=== PATIENT | male | born 1960 | race Caucasian/White ===

== ENCOUNTER 2018-10-31 09:50 | Emergency (ER) | payer OTHER, SELFPAY ==
[2018-10-31 09:57] VITALS: BP 157/103; PULSE 84; RESP 19; TEMP 36.8; O2SAT 98; BMI 29.7
--- NOTE | 2018-10-31 10:01 | ED.EXTPRO ---
HPI - Extremity Problem General Chief complaint: Extremity Injury, Upper Stated complaint: L arm injury Time Seen by Provider: 10/31/18 10:00 Source: patient Mode of arrival: ambulatory Limitations: no limitations History of Present Illness HPI Narrative: 58-year-old male here for evaluation of left arm injury. Patient states that yesterday he was pulling a rather heavy object. He did state that his arm was slightly bent. He states that he felt a ?pop? he also heard a pop and then has had pain since then. He states he does have pain when he flexes his elbow. He also has quite a bit of discomfort trying to supinate his arm. No injuries prior to this event. Related Data Allergies Allergy/AdvReac Type Severity Reaction Status Date / Time No Known Drug Allergies Allergy Verified 10/31/18 09:57 Review of Systems Constitutional Denies fever(s) Cardiovascular Denies chest pain and Denies dyspnea Respiratory Denies dyspnea Musculoskeletal Reports arthralgias (Left elbow) and Denies tingling Integumentary/Breasts Denies rash Neurologic Denies tingling Hematologic/Lymphatic Denies easy bleeding and Denies easy bruising [facility] Medical History Ankle pain (Chronic ~1996) Barretts syndrome (Chronic ~2016) Deep vein thrombosis (Chronic ~2010) Low testosterone (Chronic ~2015) Surgical History (Updated 01/17/18 @ 20:59 by Brissa Mejias) Anesthesia (Resolved) History of hernia surgery (Resolved ~1992) History of knee surgery (Resolved ~2010) Family History (Updated 01/17/18 @ 21:00 by Brissa Mejias) Father Cancer Sister No problems noted. Social History Smoking Status: Never smoker Family History (Updated 01/17/18 @ 21:00 by Brissa Mejias) Father Cancer Sister No problems noted. Social History Smoking Status: Never smoker Exam Initial Vital Signs Initial Vital Signs: Vital Signs Temperature 98.2 F 10/31/18 09:57 Pulse Rate 84 10/31/18 09:57 Respiratory Rate 19 10/31/18 09:57 Blood Pressure 157/103 H 10/31/18 09:57 Pulse Oximetry 98 10/31/18 09:57 Const General: cooperative, well developed, well groomed and No acute distress Orientation: alert and awake HENNC Head: normal to inspection and normocephalic Cardio Pulses: radial pulses present on the left Skin Lesions: no lesions Rashes: no rashes Neuro General: alert and awake Cognition: normal cognition Speech: speech normal Sensory Exam: no sensory deficits noted Extrem Other: Left hand left elbow left forearm unremarkable. He is tender to palpation over the left brachial radialis. He is able to flex and extend however does have quite a bit of discomfort with flexion. He also has quite a bit of pain with supination. The biceps tendon does appear to be intact. He does have quite a bit of discomfort flexing his biceps. Psych Appearance: grossly normal and well kempt Course Orders Ordered: ED Orders 10/31/18 10:30 XR elbow LT min 3V Stat Vital Signs - 8 hr 10/31/18 09:57 10/31/18 10:15 Temperature 98.2 F Pulse Rate 84 Pulse Rate [Left Radial] 70 Respiratory Rate 19 Blood Pressure 157/103 H Pulse Oximetry 98 MDM - Extremity (Nontraumatic) Imaging Data X-ray elbow: Radiologist's impression: [address] [address] XRay Report Signed Patient: Felix Price#: [id number] : 1Acct:[id number] Age/Sex: 58 / MDate of Service: 10/31/18 Loc: ED Accession Number: [id number] Procedure: XR elbow LT min 3V Ordering Provider: Ryley Mendes D.O. PROCEDURE: XR ELBOW LT MIN 3V INDICATIONS: Pain after injury yesterday TECHNIQUE: 3 views of the elbow were acquired. COMPARISON: None. FINDINGS: Bones: No fractures or dislocations. No suspicious bony lesions. Periarticular osteophyte formation at the elbow joint. Soft tissues: No elbow joint effusion. No suspicious soft tissue calcifications. IMPRESSION: Osteoarthritis. No acute fracture. No osseous lesion. If symptoms or clinical suspicion for pathology persists, repeat plain films, or advanced imaging (CT, bone scan, or MRI) may be helpful for further assessment. Dictated by: Ilana Esteban M.D. on 10/31/2018 at 9:43 Approved by: Ilana Esteban M.D. on 10/31/2018 at 9:43 MDM Narrative Medical decision making narrative: Patient is neurovascularly intact. He does have tenderness to palpation over the brachia radialis. Secondary to his history and physical exam I do have some concern about a potential tear the brachioradialis and or the biceps. He does not have a ?pop eye sign ?on the right. Patient was given the number for follow-up with Orthopedics. He states that he does not will need a sling. He states he will use Tylenol and ibuprofen at home. Informed him he should follow up with Orthopedics to evaluate whether not he needs an MRI. He was given return precautions. He expressed understanding and agreement with plan. Discharge Plan Departure Patient Disposition: Home Clinical Impression: Injury of elbow, left Qualifiers: Encounter type: initial encounter Qualified Code(s): S59.902A - Unspecified injury of left elbow, initial encounter Discharge Date/Time: 10/31/18 11:10 Interventions: ED Discharge Assessment Last Done: 10/31/18 11:09 Instructions: DI for Elbow Pain Activity Restrictions/Additional Instructions: Recommend use Tylenol for any discomfort. Contact the [facility]opedic group at [phone] on Friday for a follow-up. Return to the emergency department for any new or worsening symptoms
[2018-10-31 10:15] VITALS: PULSE 70
--- NOTE | 2018-10-31 10:30 | DI.RAD.S_ITS ---
PROCEDURE: XR ELBOW LT MIN 3V INDICATIONS: Pain after injury yesterday TECHNIQUE: 3 views of the elbow were acquired. COMPARISON: None. FINDINGS: Bones: No fractures or dislocations. No suspicious bony lesions. Periarticular osteophyte formation at the elbow joint. Soft tissues: No elbow joint effusion. No suspicious soft tissue calcifications. IMPRESSION: Osteoarthritis. No acute fracture. No osseous lesion. If symptoms or clinical suspicion for pathology persists, repeat plain films, or advanced imaging (CT, bone scan, or MRI) may be helpful for further assessment. Dictated by: Ilana Esteban M.D. on 10/31/2018 at 9:43 Approved by: Ilana Esteban M.D. on 10/31/2018 at 9:43
== END 2018-10-31 11:10 | disposition home or self-care (01) ==
PROVIDERS: Emergency Provider Emergency Medicine
DX: S59.902A Unspecified injury of left elbow, initial encounter (principal)
CPT/HCPCS: 73080; 99282; 99283

== ENCOUNTER 2018-12-22 07:30 | Outpatient (RCR) | payer OTHER, SELFPAY ==
--- NOTE | 2018-11-10 10:22 | OT.OP.EVAL ---
Visit Care Team Role Provider Type Karson Crawford MD Attending Provider Non-Staff Primary Care Provider Specialty: Family Practice Address: [address] [place] [address], [id number] Email: Occupational Therapy Initial Evaluation OT Outpatient Adult Evaluation Start: 11/09/18 13:17 Freq: Status: Active Protocol: Document 11/06/18 13:17 AMS (Rec: 11/09/18 13:32 AMS [email or web address]) General Information Visit Start Time 07:30 Visit Stop Time 08:00 Total Visit Minutes 30 Plan of Care Dates 11/06/18-01/29/19 Insurance Information ; 1 eval and 12 visits Treatment Setting Outpatient Care Note Type Initial Evaluation Referring Physician Karson Crawford MD Reason for Referral Strain of muscle, fascia and tendon of long head of biceps, left arm Identification Confirmed Yes: Photo ID Patient Goals Return to PLOF Medical History Health History form completed by patient and placed in paper chart. Significant for arthritis; back pain; blood clots; hernia; stomach surgery . Medical records were reviewed; patient reportedly heard a pop in his left arm when attempting to slide the bucket of an excavator at work . Per MD notes, patient 'has full range of motion, no loss of function and only pain' [ symptoms] 'most likely represent a partial tear of brachial radialis'. x-ray was completed on 10/31/18 . Impression as follows: No acute fracture. No osseous lesion. 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 Range of Motion Left Active Elbow/Forearm ROM WFL No Forearm ROM Testing Position Sitting Elbow Flex AROM (degrees) 0-133 Elbow Ext AROM (degrees) Full extension Forearm Pron AROM (degrees) 0-75 (more painful) Forearm Sup AROM (degrees) 0-75 Right Active Elbow/Forearm ROM WFL Yes Forearm ROM Testing Position Sitting Elbow Flex AROM (degrees) 0-143 Elbow Ext AROM (degrees) FULL ROM (full extension) Forearm Pron AROM (degrees) 0-90 Forearm Sup AROM (degrees) 0-80 Goals Short Term Goals 1. 0-80 degrees pain-free active left forearm supination . 2. 0-80 degrees pain-free active left forearm pronation. Shelter Goals 1. Patient will present with increased ability to complete functional tasks d/t decreased pain/discomfort, as evidenced by indication of 2 or less out of 10 on the Pain Assessment Grid relative to the left upper extremity. 2. Patient will present with increased ability to complete functional tasks, as evidenced by obtaining a score of less than 20.0 on the QuickDASH UE Outcome Measure. 3. Patient will present with increased ability to complete work tasks, as evidenced by obtaining a score of less than 20.0 on the QuickDASH UE Outcome Work Measure. Assessment/Plan Patient Response Good Rehabilitation Potential Good Impairments Identified Coordination/Dexterity Functional Activities Motor Function Pain Weakness Range of Motion Recreational Activities Meaningful Activities Stiffness Swelling Soft Tissue Mobility Motor Planning Eye-Hand Coordination Treatment Assessment Patient is a 58 year-old right hand dominant male referred to outpatient OT by PCP for muscle tear. Muscle tear was result of exertional injury occurring against elbow flexion of heavy object with left arm. Per MD notes, patient 'has full range of motion, no loss of function and only pain' [symptoms] ' most likely represent a partial tear of brachial radialis'. x-ray was completed on 10/31/18. Impression as follows: No acute fracture. No osseous lesion. 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 Outpatient OT is recommended to address areas of impairment in order to maximize patient' s success w/ active participation in meaningful activities in a variety of environments. Comment 12 weeks Treatment Frequency Once a Week Therapeutic Contents Active Range of Motion Adaptive Equipment Education Client Education Functional Activities Home Exercise Program Joint Protection Manual Therapy Education Neurodevelopment Treatment Neuromuscular Re-Education Self-Care Splinting Stretching/Flexibility Activities Therapeutic Activities Therapeutic Exercises Modalities Sensory Re-education Modalities As Needed As Prescribed Types of Modalities Contrast Bath E-Stim Functional Stimulation (FES) Ice Massage Bandaging T.E.N. Stimulation TENS Placement/Application Ultrasound Patient Instruction Home Exercise Program Plan of Care Questions/Concerns Patient Recommendations Continue with Current Program Advance per Rehabilitation Protocol
--- NOTE | 2018-11-11 10:29 | OT.OP.TRT ---
Visit Care Team Role Provider Type Karson Crawford MD Attending Provider Non-Staff Primary Care Provider Specialty: Family Practice Address: [address] [place] [address], [id number] Email: Occupational Therapy Treatment Note OT Outpatient Treatment Note - Adult Start: 11/09/18 13:17 Freq: Status: Active Protocol: Document 11/11/18 10:13 AMS (Rec: 11/11/18 10:29 AMS [email or web address]) OT Outpatient Adult Treatment Note Session Time Visit Start Time 07:30 Visit Stop Time 08:10 Total Visit Minutes 40 Visit Information Visit Number 05/30 Plan of Care Dates 11/06/18-01/29/19 Setting Treatment Setting Outpatient Care Visit Type Note Type Treatment Note General Information General Information Patient is a 58 year-old right hand dominant male referred to outpatient OT by PCP for muscle tear. Muscle tear was result of exertional injury occurring against elbow flexion of heavy object with left arm. Per MD notes, patient 'has full range of motion, no loss of function and only pain' [symptoms] ' most likely represent a partial tear of brachial radialis'. x-ray was completed on 10/31/18. Impression as follows: No acute fracture. No osseous lesion. - Subjective Identification Type Name Identification Reconciled With Medical Record Observations The contrast really seems to be helping per Josesito ( in re: contrast hot and cold). I told the doctor that I would not wear a splint. He said it might help with my pain per Josesito. I think it is better than last week. I can now do this [ pronate and supinate w/ elbow extended]. I couldn't do that . Chief Complaint(s) Restricts Patient/Caregiver Compliance with Home Good Exercise Program - Objective Short Term Goals 1. 0-80 degrees pain-free active left forearm supination . 2. 0-80 degrees pain-free active left forearm pronation. Residential Goals 1. Patient will present with increased ability to complete functional tasks d/t decreased pain/discomfort, as evidenced by indication of 2 or less out of 10 on the Pain Assessment Grid relative to the left upper extremity. 2. Patient will present with increased ability to complete functional tasks, as evidenced by obtaining a score of less than 20.0 on the QuickDASH UE Outcome Measure. 3. Patient will present with increased ability to complete work tasks, as evidenced by obtaining a score of less than 20.0 on the QuickDASH UE Outcome Work Measure. - Treatment 3 Descriptor HEP. No changes to HEP on this treatment date. Recommended continued utilization of contrast baths, AROM. Avoid pain with ROM exercises; no lifting/carrying items with UE . 2 Descriptor Manual Mobilization. Soft tissue. Medial/lateral elbow focus. 1 Descriptor Ultrasound. 20% duty cycle. 2. 0 w/cm2. Applied to volar elbow to address swelling. Skin intact pre- and post- treatment. - Assessment Patient Response to Treatment Fair Rehab Potential Good Impairments Identified Flexibility Functional Activities Motor Function Pain Weakness Range of Motion Recreational Activities Meaningful Activities Stiffness Swelling Soft Tissue Mobility Motor Planning Eye-Hand Coordination Assessment of Improvement Decreased ecchymosis compared to previous treatment session - still present distally volar surface of wrist; improving pain-free active forearm supination and pronation w/ elbow in extension. Pain still present however, particularly w/ supinaton and pronation w/ elbow in 45 degree flexion. No c/o w/ supination/pronation w/ 90 degree flexion of elbow . Denied change in AROM at shoulder and wrist/digits compared to PLOF. h/o declining splint as recommended by MD to assist w/ management of pain/discomfort . Recommend that therapist advances treatment and HEP as able given presenting symptoms at time of next treatment session. Home Exercise Program Please refer to treatment section of note for specific details. Reviewed with Patient/Caregiver Progress Being Made - Plan Therapy Recommendations Continue with Current Program Advance per Rehabilitation Protocol
--- NOTE | 2018-11-20 11:48 | OT.OP.TRT ---
Visit Care Team Role Provider Type Karson Crawford MD Attending Provider Non-Staff Primary Care Provider Specialty: Family Practice Address: [address] [place] [address], [id number] Email: Occupational Therapy Treatment Note OT Outpatient Treatment Note - Adult Start: 11/09/18 13:17 Freq: Status: Active Protocol: Document 11/20/18 08:27 AMS (Rec: 11/20/18 08:33 AMS [email or web address]) OT Outpatient Adult Treatment Note Session Time Visit Start Time 07:30 Visit Stop Time 08:10 Total Visit Minutes 40 Visit Information Visit Number 06/30 Plan of Care Dates 11/06/18-01/29/19 Insurance Information 1 eval; 12 visits Setting Treatment Setting Outpatient Care Visit Type Note Type Treatment Note General Information General Information Patient is a 58 year-old right hand dominant male referred to outpatient OT by PCP for muscle tear. Muscle tear was result of exertional injury occurring against elbow flexion of heavy object with left arm. Per MD notes, patient 'has full range of motion, no loss of function and only pain' [symptoms] ' most likely represent a partial tear of brachial radialis'. x-ray was completed on 10/31/18. Impression as follows: No acute fracture. No osseous lesion. - Subjective Identification Type Name Identification Reconciled With Medical Record Observations It seems to be getting better . I couldn't even feel it when I came in per Josesito. 11/11/18= I told the doctor that I would not wear a splint . He said it might help with my pain per Josesito. I think it is better than last week. I can now do this [ pronate and supinate w/ elbow extended]. I couldn't do that . Chief Complaint(s) Restricts Patient/Caregiver Compliance with Home Good Exercise Program - Objective Objective Measurements Denied pain/discomfort w/ forearm supination/pronation w / elbow in 90 degrees and 135 degrees. Initiated light resistance exercises; (+) fatigue reported. Short Term Goals 1. 0-80 degrees pain-free active left forearm supination . 2. 0-80 degrees pain-free active left forearm pronation. Detention Goals 1. Patient will present with increased ability to complete functional tasks d/t decreased pain/discomfort, as evidenced by indication of 2 or less out of 10 on the Pain Assessment Grid relative to the left upper extremity. 2. Patient will present with increased ability to complete functional tasks, as evidenced by obtaining a score of less than 20.0 on the QuickDASH UE Outcome Measure. 3. Patient will present with increased ability to complete work tasks, as evidenced by obtaining a score of less than 20.0 on the QuickDASH UE Outcome Work Measure. - Treatment 3 Descriptor HEP. Recommended light resistance exercises 1 to 2 pounds of weight; avoid pain w / execution of exercises. 3 x 10 recommended 2 to 3 times per day w/ increase in repetitions as tolerated versus increasing resistance. Recommended continued focus on pain-free ROM and swelling management as well as carrying items > 1-2 pounds in weight. Josesito denied questions. 2 Descriptor Manual Mobilization. Soft tissue. Medial elbow focus. 1 Descriptor Ultrasound. 20% duty cycle. 2. 0 w/cm2. x 10 minutes. Applied to volar elbow to address swelling/inflammation. Skin intact pre- and post-treatment . Exercises 1 Descriptor Light resistance exercises Forearm pronation/supination Wrist extension/flexion Side Left Sets 3 Repetitions 10 Resistance 2# DB Complexity Upgraded - Assessment Patient Response to Treatment Fair Rehab Potential Good Impairments Identified Flexibility Functional Activities Motor Function Pain Weakness Range of Motion Recreational Activities Meaningful Activities Stiffness Swelling Soft Tissue Mobility Motor Planning Eye-Hand Coordination Assessment of Improvement (-) ecchymosis. No c/o w/ supination/pronation w/ 90 degrees flexion of elbow and/ or 45 degrees flexion of elbow . Upgraded therapeutic exercises to light resistance; (+) fatigue w/ execution of exercises away from body. Upgraded HEP on this treatment date. Recommend that therapist advances treatment and HEP as able given presenting symptoms at time of next treatment session. Home Exercise Program Please refer to treatment section of note for specific details. Reviewed with Patient/Caregiver Progress Being Made - Plan Therapy Recommendations Continue with Current Program Advance per Rehabilitation Protocol
--- NOTE | 2018-11-27 08:22 | OT.OP.TRT ---
Visit Care Team Role Provider Type Karson Crawford MD Attending Provider Non-Staff Primary Care Provider Specialty: Family Practice Address: [address] [place] [address], [phone] Email: Occupational Therapy Treatment Note OT Outpatient Treatment Note - Adult Start: 11/09/18 13:17 Freq: Status: Active Protocol: Document 11/27/18 08:16 AMS (Rec: 11/27/18 08:22 AMS [email or web address]) OT Outpatient Adult Treatment Note Session Time Visit Start Time 07:30 Visit Stop Time 08:10 Total Visit Minutes 40 Visit Information Visit Number 07/28 Plan of Care Dates 11/06/18-01/29/19 Insurance Information 1 eval; 12 visits Setting Treatment Setting Outpatient Care Visit Type Note Type Treatment Note General Information General Information Patient is a 58 year-old right hand dominant male referred to outpatient OT by PCP for muscle tear. Muscle tear was result of exertional injury occurring against elbow flexion of heavy object with left arm. Per MD notes, patient 'has full range of motion, no loss of function and only pain' [symptoms] ' most likely represent a partial tear of brachial radialis'. x-ray was completed on 10/31/18. Impression as follows: No acute fracture. No osseous lesion. - Subjective Identification Type Name Identification Reconciled With Medical Record Observations I have been taking it easy. I have been using a soda can or a water bottle in the truck doing the exercises per Josesito. 11/11/18= I told the doctor that I would not wear a splint . He said it might help with my pain per Hamer. I think it is better than last week. I can now do this [ pronate and supinate w/ elbow extended]. I couldn't do that . Chief Complaint(s) Restricts Patient/Caregiver Compliance with Home Good Exercise Program - Objective Objective Measurements Denied pain/discomfort w/ forearm supination/pronation w / elbow in 90 degrees and 135 degrees. Short Term Goals 1. 0-80 degrees pain-free active left forearm supination . 2. 0-80 degrees pain-free active left forearm pronation. Retirement Goals 1. Patient will present with increased ability to complete functional tasks d/t decreased pain/discomfort, as evidenced by indication of 2 or less out of 10 on the Pain Assessment Grid relative to the left upper extremity. 2. Patient will present with increased ability to complete functional tasks, as evidenced by obtaining a score of less than 20.0 on the QuickDASH UE Outcome Measure. 3. Patient will present with increased ability to complete work tasks, as evidenced by obtaining a score of less than 20.0 on the QuickDASH UE Outcome Work Measure. - Treatment 3 Descriptor HEP. Recommended light resistance exercises 1 to 2 pounds of weight; avoid pain w / execution of exercises. 3 x 10 recommended 2 to 3 times per day w/ increase in repetitions as tolerated versus increasing resistance. Advanced to hold of light weight for 5-8 seconds for strengthening/stabilizing purposes, as well as for flexibility. Josesito denied questions. Complexity Upgraded 2 Descriptor Manual Mobilization. Soft tissue. Medial elbow focus. 1 Descriptor Ultrasound. 20% duty cycle. 2. 0 w/cm2. x 10 minutes. Applied to volar elbow to address swelling/inflammation. Skin intact pre- and post-treatment . Exercises 1 Descriptor Light resistance exercises Forearm pronation/supination Wrist extension/flexion (addition of hold for 5 to 8 sec) Side Left Sets 1 Repetitions 10 Resistance 2# DB Complexity Upgraded - Assessment Patient Response to Treatment Fair Rehab Potential Good Impairments Identified Flexibility Functional Activities Motor Function Pain Weakness Range of Motion Recreational Activities Meaningful Activities Stiffness Swelling Soft Tissue Mobility Motor Planning Eye-Hand Coordination Assessment of Improvement (-) ecchymosis. No c/o w/ supination/pronation w/ 90 degrees flexion of elbow and/ or 45 degrees flexion of elbow . Upgraded therapeutic exercises to light resistance with hold given no report of fatigue/muscle weakness w/ previously recommended exercises. (+) report of increased effort required w/ hold. (+) tenderness medial/ volar surface of elbow. Recommend that therapist advances treatment and HEP as able given presenting symptoms at time of next treatment session. Home Exercise Program Please refer to treatment section of note for specific details. Reviewed with Patient/Caregiver Progress Being Made - Plan Therapy Recommendations Continue with Current Program Advance per Rehabilitation Protocol
--- NOTE | 2018-12-01 09:47 | OT.OP.TRT ---
Visit Care Team Role Provider Type Karson Crawford MD Attending Provider Non-Staff Primary Care Provider Specialty: Family Practice Address: [address] [place] [address], [id number] Email: Occupational Therapy Treatment Note OT Outpatient Treatment Note - Adult Start: 11/09/18 13:17 Freq: Status: Active Protocol: Document 12/01/18 09:41 AMS (Rec: 12/01/18 09:47 AMS [email or web address]) OT Outpatient Adult Treatment Note Session Time Visit Start Time 07:30 Visit Stop Time 08:10 Total Visit Minutes 40 Visit Information Visit Number 08/28 Plan of Care Dates 11/06/18-01/29/19 Insurance Information 1 eval; 12 visits Setting Treatment Setting Outpatient Care Visit Type Note Type Treatment Note General Information General Information Patient is a 58 year-old right hand dominant male referred to outpatient OT by PCP for muscle tear. Muscle tear was result of exertional injury occurring against elbow flexion of heavy object with left arm. Per MD notes, patient 'has full range of motion, no loss of function and only pain' [symptoms] ' most likely represent a partial tear of brachial radialis'. x-ray was completed on 10/31/18. Impression as follows: No acute fracture. No osseous lesion. - Subjective Identification Type Name Identification Reconciled With Medical Record Observations I was pretty sore after last treatment session per Josesito. 11/11/18= I told the doctor that I would not wear a splint . He said it might help with my pain per Josesito. I think it is better than last week. I can now do this [ pronate and supinate w/ elbow extended]. I couldn't do that . Chief Complaint(s) Restricts Patient/Caregiver Compliance with Home Good Exercise Program - Objective Objective Measurements Denied pain/discomfort w/ forearm supination/pronation w / elbow in 90 degrees and 135 degrees. Short Term Goals 1. 0-80 degrees pain-free active left forearm supination . 2. 0-80 degrees pain-free active left forearm pronation. Creative Art Director Goals 1. Patient will present with increased ability to complete functional tasks d/t decreased pain/discomfort, as evidenced by indication of 2 or less out of 10 on the Pain Assessment Grid relative to the left upper extremity. 2. Patient will present with increased ability to complete functional tasks, as evidenced by obtaining a score of less than 20.0 on the QuickDASH UE Outcome Measure. 3. Patient will present with increased ability to complete work tasks, as evidenced by obtaining a score of less than 20.0 on the QuickDASH UE Outcome Work Measure. - Treatment 3 Descriptor HEP. No changes to HEP given presentation. Josesito denied questions. Complexity No Change 2 Descriptor Manual Mobilization. Soft tissue. 1 Descriptor Ultrasound. 20% duty cycle. 2. 0 w/cm2 x 15 minutes. Applied to volar elbow to address swelling/inflammation. Skin intact pre- and post-treatment . Exercises 1 Descriptor Light resistance exercises Forearm pronation/supination Wrist extension/flexion (addition of hold for 5 to 8 sec) Side Left Sets 1 Repetitions 10 Resistance 2# DB Complexity Upgraded - Assessment Patient Response to Treatment Fair Rehab Potential Good Impairments Identified Flexibility Functional Activities Motor Function Pain Weakness Range of Motion Recreational Activities Meaningful Activities Stiffness Swelling Soft Tissue Mobility Motor Planning Eye-Hand Coordination Assessment of Improvement (-) ecchymosis. Increased pain /discomfort w/ active ROM s/p previous treatment session. (+ ) increased stiffness of volar surface of L forearm; manual focus on addressing muscular stiffness. Decreased stiffness and pain/discomfort reported; thus, positive response to treatment. Recommend that therapist advances treatment and HEP as able given presenting symptoms at time of next treatment session. Home Exercise Program Please refer to treatment section of note for specific details. Reviewed with Patient/Caregiver Progress Being Made - Plan Therapy Recommendations Continue with Current Program Advance per Rehabilitation Protocol
--- NOTE | 2018-12-11 14:13 | OT.OP.TRT ---
Visit Care Team Role Provider Type Karson Crawford MD Attending Provider Non-Staff Primary Care Provider Specialty: Family Practice Address: [address] [place] [address], [phone] Email: Occupational Therapy Treatment Note OT Outpatient Treatment Note - Adult Start: 11/09/18 13:17 Freq: Status: Active Protocol: Document 12/11/18 14:05 AMS (Rec: 12/11/18 14:13 AMS [email or web address]) OT Outpatient Adult Treatment Note Session Time Visit Start Time 07:30 Visit Stop Time 08:10 Total Visit Minutes 40 Visit Information Visit Number 10/28 Plan of Care Dates 11/06/18-01/29/19 Insurance Information 1 eval; 12 visits Setting Treatment Setting Outpatient Care Visit Type Note Type Treatment Note General Information General Information Patient is a 58 year-old right hand dominant male referred to outpatient OT by PCP for muscle tear. Muscle tear was result of exertional injury occurring against elbow flexion of heavy object with left arm. Per MD notes, patient 'has full range of motion, no loss of function and only pain' [symptoms] ' most likely represent a partial tear of brachial radialis'. x-ray was completed on 10/31/18. Impression as follows: No acute fracture. No osseous lesion. - Subjective Identification Type Name Identification Reconciled With Medical Record Observations I couldn't have done that a couple of weeks ago per Josesito in response to dynamic combined UE movements. 11/11/18= I told the doctor that I would not wear a splint . He said it might help with my pain per Josesito. I think it is better than last week. I can now do this [ pronate and supinate w/ elbow extended]. I couldn't do that . Chief Complaint(s) Restricts Patient/Caregiver Compliance with Home Good Exercise Program - Objective Objective Measurements Denied pain/discomfort w/ forearm supination/pronation w / elbow in 90 degrees and 135 degrees. Short Term Goals 1. 0-80 degrees pain-free active left forearm supination . 2. 0-80 degrees pain-free active left forearm pronation. Care Home Goals 1. Patient will present with increased ability to complete functional tasks d/t decreased pain/discomfort, as evidenced by indication of 2 or less out of 10 on the Pain Assessment Grid relative to the left upper extremity. 2. Patient will present with increased ability to complete functional tasks, as evidenced by obtaining a score of less than 20.0 on the QuickDASH UE Outcome Measure. 3. Patient will present with increased ability to complete work tasks, as evidenced by obtaining a score of less than 20.0 on the QuickDASH UE Outcome Work Measure. - Treatment 3 Descriptor HEP. Upgraded exercises; recommended utilization of 3# DB. Elbow flexion/forearm pronation/wrist flexion -> elbow extension/forearm supination/wrist extension (in front of body -> left side of body). Elbox flexion/forearm supination/wrst flexion ( behind head) -> elbow extension/forearm pronation ( posterior to body). Reviewed exercises in treatment session . Josesito denied questions /need for written and/or visual instructions. Complexity Upgraded 2 Descriptor Manual Mobilization. Soft tissue. 1 Descriptor Ultrasound. 20% duty cycle. 2. 0 w/cm2 x 15 minutes. Applied to volar elbow to address swelling/inflammation. Skin intact pre- and post-treatment . - Assessment Patient Response to Treatment Fair Rehab Potential Good Impairments Identified Flexibility Functional Activities Motor Function Pain Weakness Range of Motion Recreational Activities Meaningful Activities Stiffness Swelling Soft Tissue Mobility Motor Planning Eye-Hand Coordination Assessment of Improvement Advanced HEP on this treatment date; advanced dynamic nature of UE exercises. Mild discomfort reported only in shoulder; thus, recommended utilizing 3# DB w/ exercises w / HEP. Recommend that therapist advances treatment and HEP as able given presenting symptoms at time of next treatment session. Home Exercise Program Please refer to treatment section of note for specific details. Reviewed with Patient/Caregiver Progress Being Made - Plan Therapy Recommendations Continue with Current Program Advance per Rehabilitation Protocol
--- NOTE | 2018-12-22 08:23 | OT.OP.TRT ---
Visit Care Team Role Provider Type Karson Crawford MD Attending Provider Non-Staff Primary Care Provider Specialty: Family Practice Address: [address] [place] [address], [id number] Email: Occupational Therapy Treatment Note OT Outpatient Treatment Note - Adult Start: 11/09/18 13:17 Freq: Status: Active Protocol: Document 12/22/18 08:13 AMS (Rec: 12/22/18 08:23 AMS [email or web address]) OT Outpatient Adult Treatment Note Session Time Visit Start Time 07:30 Visit Stop Time 08:10 Total Visit Minutes 40 Visit Information Visit Number 11/27 Plan of Care Dates 11/06/18-01/29/19 Insurance Information 1 eval; 12 visits Setting Treatment Setting Outpatient Care Visit Type Note Type Treatment Note General Information General Information Patient is a 58 year-old right hand dominant male referred to outpatient OT by PCP for muscle tear. Muscle tear was result of exertional injury occurring against elbow flexion of heavy object with left arm. Per MD notes, patient 'has full range of motion, no loss of function and only pain' [symptoms] ' most likely represent a partial tear of brachial radialis'. x-ray was completed on 10/31/18. Impression as follows: No acute fracture. No osseous lesion. - Subjective Identification Type Name Identification Reconciled With Medical Record Observations I was wondering if I could swim per Christopher. 11/11/18= I told the doctor that I would not wear a splint . He said it might help with my pain per Christopher. I think it is better than last week. I can now do this [ pronate and supinate w/ elbow extended]. I couldn't do that . Chief Complaint(s) Restricts Patient/Caregiver Compliance with Home Good Exercise Program - Objective Objective Measurements Denied pain/discomfort w/ forearm supination/pronation w / elbow in 90 degrees and 135 degrees. 0-80 degrees active pain-free L forearm supination ; 0-85 degreees pain-free forearm pronation. No complaints of pain/discomfort in elbow w/ execution of modified body weight exercises /dumbbell/ROM exercises. Short Term Goals 1. 0-138 degrees pain-free active left elbow extension. 2. 5/5 MMT L forearm supination. 3. 5/5 MMT L forearm pronation . 4. 5/5 MMT L elbow flexion. 5. 5/5 MMT L elbow extension. GOALS MET 0-80 degrees pain-free active left forearm pronation. *MET 0-80 degrees pain-free active left forearm supination. *MET 12/22/18 Communications Representative Goals 1. Patient will present with increased ability to complete functional tasks d/t decreased pain/discomfort, as evidenced by indication of 2 or less out of 10 on the Pain Assessment Grid relative to the left upper extremity. 2. Patient will present with increased ability to complete functional tasks, as evidenced by obtaining a score of less than 20.0 on the QuickDASH UE Outcome Measure. 3. Patient will present with increased ability to complete work tasks, as evidenced by obtaining a score of less than 20.0 on the QuickDASH UE Outcome Work Measure. - Treatment 3 Descriptor HEP. Upgraded exercises; recommended utilization of 4# DB w/ previously recommended exercises. Initiated modified bilateral arm rest chair dip w / sustained hold x 5 sec x 3 reps; instructed in upgrade w/ weight shift. Initiated modified plank w/ bilateral arm rest chair w/ sustained hold x 5 sec x 3 reps; instructed in upgrade w/ weight shift. Initiated ROM exercises for shoulder/elbow w / use of tennis ball (wind-up; edilma hook; dribble; cross body ). Reviewed exercises in treatment session. Instruction on upgrading of exercises was provided given therapist to be out of clinic on vacation. Also recommended continued participation in swimming monitoring symptoms w/ reduced resistance from water. Josesito denied questions/ need for written and/or visual instructions. Complexity Upgraded 2 Descriptor Manual Mobilization. Soft tissue. 1 Descriptor Ultrasound. 20% duty cycle. 2. 0 w/cm2 x 15 minutes. Applied to volar elbow to address swelling/inflammation. Skin intact pre- and post-treatment . - Assessment Patient Response to Treatment Fair Rehab Potential Good Impairments Identified Flexibility Functional Activities Motor Function Pain Weakness Range of Motion Recreational Activities Meaningful Activities Stiffness Swelling Soft Tissue Mobility Motor Planning Eye-Hand Coordination Assessment of Overall Progress Improving Assessment of Improvement Improving pain-free ROM of elbow; this is evidenced by patient meeting active forearm supination/pronation short term goals. Slight decrease in available pronation of L (0- 85 degrees) compared to R (0- 90 degrees). However, functional pain-free ROM available. Goals were upgraded accordingly. Advanced HEP on this treatment date; advanced dynamic nature of UE exercises . Recommend that therapist advances treatment and HEP as able given presenting symptoms at time of next treatment session. Home Exercise Program Please refer to treatment section of note for specific details. Reviewed with Patient/Caregiver Progress Being Made - Plan Therapy Recommendations Continue with Current Program Advance per Rehabilitation Protocol Additional Therapy Recommendations Resume therapy upon therapist return from vacation
--- NOTE | 2019-01-19 09:02 | OT.OP.DC ---
Visit Care Team Role Provider Type Karson rCawford MD Attending Provider Non-Staff Primary Care Provider Address: [address] [place] [address], [place], [address] Email: OT Outpatient OT Outpatient Adult Evaluation Start: 11/09/18 13:17 Freq: Status: Active Protocol: Document 11/06/18 13:17 AMS (Rec: 11/09/18 13:32 AMS [email or web address]) General Information Session Time Visit Start Time 07:30 Visit Stop Time 08:00 Total Visit Minutes 30 Visit Information Plan of Care Dates 11/06/18-01/29/19 Insurance Information ; 1 eval and 12 visits Setting Treatment Setting Outpatient Care Visit Type Note Type Initial Evaluation Referral Referring Physician Karson Crawford MD Reason for Referral Strain of muscle, fascia and tendon of long head of biceps, left arm Identification Identification Confirmed Yes: Photo ID Patient Patient Goals Return to PLOF Medical Information Medical History Health History form completed by patient and placed in paper chart. Significant for arthritis; back pain; blood clots; hernia; stomach surgery . Medical records were reviewed; patient reportedly heard a pop in his left arm when attempting to slide the bucket of an excavator at work . Per MD notes, patient 'has full range of motion, no loss of function and only pain' [ symptoms] 'most likely represent a partial tear of brachial radialis'. x-ray was completed on 10/31/18 . Impression as follows: No acute fracture. No osseous lesion. 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 Range of Motion Elbow/Forearm Left Active Elbow/Forearm ROM WFL No Forearm ROM Testing Position Sitting Elbow Flex AROM (degrees) 0-133 Elbow Ext AROM (degrees) Full extension Forearm Pron AROM (degrees) 0-75 (more painful) Forearm Sup AROM (degrees) 0-75 Right Active Elbow/Forearm ROM WFL Yes Forearm ROM Testing Position Sitting Elbow Flex AROM (degrees) 0-143 Elbow Ext AROM (degrees) FULL ROM (full extension) Forearm Pron AROM (degrees) 0-90 Forearm Sup AROM (degrees) 0-80 Goals Short Term Goals Short Term Goals 1. 0-80 degrees pain-free active left forearm supination . 2. 0-80 degrees pain-free active left forearm pronation. 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 Patient will present with increased ability to complete functional tasks d/t decreased pain/discomfort, as evidenced by indication of 2 or less out of 10 on the Pain Assessment Grid relative to the left upper extremity. 2. Patient will present with increased ability to complete functional tasks, as evidenced by obtaining a score of less than 20.0 on the QuickDASH UE Outcome Measure. 3. Patient will present with increased ability to complete work tasks, as evidenced by obtaining a score of less than 20.0 on the QuickDASH UE Outcome Work Measure. Assessment/Plan Assessment Patient Response Good Rehabilitation Potential Good Impairments Identified Coordination/Dexterity, Functional Activities,Motor Function,Pain,Weakness,Range of Motion,Recreational Activities,Meaningful Activities,Stiffness,Swelling, Soft Tissue Mobility,Motor Planning,Eye-Hand Coordination Treatment Assessment Patient is a 58 year-old right hand dominant male referred to outpatient OT by PCP for muscle tear. Muscle tear was result of exertional injury occurring against elbow flexion of heavy object with left arm. Per MD notes, patient 'has full range of motion, no loss of function and only pain' [symptoms] ' most likely represent a partial tear of brachial radialis'. x-ray was completed on 10/31/18. Impression as follows: No acute fracture. No osseous lesion. 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 Outpatient OT is recommended to address areas of impairment in order to maximize patient' s success w/ active participation in meaningful activities in a variety of environments. Plan Comment 12 weeks Treatment Frequency Once a Week Therapeutic Contents Active Range of Motion, Adaptive Equipment Education, Client Education,Functional Activities,Home Exercise Program,Joint Protection, Manual Therapy,Education, Neurodevelopment Treatment, Neuromuscular Re-Education, Self-Care,Splinting,Stretching /Flexibility Activities, Therapeutic Activities, Therapeutic Exercises, Modalities,Sensory Re- education Modalities As Needed,As Prescribed Types of Modalities Contrast Bath,E-Stim, Functional Stimulation (FES), Ice Massage,Bandaging,T.E.N. Stimulation,TENS Placement/ Application,Ultrasound Patient Instruction Home Exercise Program,Plan of Care,Questions/Concerns Patient Recommendations Continue with Current Program, Advance per Rehabilitation Protocol Sensory Assessment Sensory Profile2 Functional Wrist/Hand Scan Hand Side OT Outpatient Treatment Note - Adult Start: 11/09/18 13:17 Freq: Status: Active Protocol: Document 01/19/19 08:57 AMS (Rec: 01/19/19 09:02 AMS [email or web address]) OT Outpatient Adult Treatment Note Visit Information Visit Number [id number] Plan of Care Dates 11/06/18-01/29/19 Insurance Information 1 eval; 12 visits Setting Treatment Setting Outpatient Care Visit Type Note Type Discharge Summary General Information General Information Patient is a 58 year-old right hand dominant male referred to outpatient OT by PCP for muscle tear. Muscle tear was result of exertional injury occurring against elbow flexion of heavy object with left arm. Per MD notes, patient 'has full range of motion, no loss of function and only pain' [symptoms] ' most likely represent a partial tear of brachial radialis'. x-ray was completed on 10/31/18. Impression as follows: No acute fracture. No osseous lesion. - Subjective Observations Per outpatient front end architect staff, patient requested d/c . It is also important to note that patient indicated to front end architect staff member that he 'knows what to do now' based on treatment sessions. - Objective Short Term Goals ALL GOALS DISCHARGED 01/19/19 1. 0-138 degrees pain-free active left elbow extension. 2. 5/5 MMT L forearm supination. 3. 5/5 MMT L forearm pronation . 4. 5/5 MMT L elbow flexion. 5. 5/5 MMT L elbow extension. GOALS MET 0-80 degrees pain-free active left forearm pronation. *MET 0-80 degrees pain-free active left forearm supination. *MET 12/22/18 Fdc Goals ALL GOALS DISCHARGED 01/19/19 1. Patient will present with increased ability to complete functional tasks d/t decreased pain/discomfort, as evidenced by indication of 2 or less out of 10 on the Pain Assessment Grid relative to the left upper extremity. 2. Patient will present with increased ability to complete functional tasks, as evidenced by obtaining a score of less than 20.0 on the QuickDASH UE Outcome Measure. 3. Patient will present with increased ability to complete work tasks, as evidenced by obtaining a score of less than 20.0 on the QuickDASH UE Outcome Work Measure. - - Assessment Assessment of Improvement Per outpatient front end architect staff, patient requested d/c . It is also important to note that patient indicated to front end architect staff member that he 'knows what to do now' based on treatment sessions. - Plan Therapy Recommendations Discharge from Occupational Therapy
== END 2019-01-29 08:39 | disposition home or self-care (01) ==
LOC: OT 07:30
PROVIDERS: PCP General Practice; Visit Provider General Practice
DX: S46.112A Strain of muscle, fascia and tendon of long head of biceps, left arm, initial encounter (principal)
CPT/HCPCS: 97035; 97110; 97140; 97165